=== PATIENT | male | born 1930 | race Caucasian/White ===

== ENCOUNTER 2020-01-15 04:40 | Day surgery (SDC) | payer OTHER ==
[2020-01-12 17:29] VITALS: BMI 23.6
[~2020-01-15 04:40] MED LIST: BUPIVACAINE HCL 0.5% 250 MG/50 ML VIAL IJ ONE; IOHEXOL 180 MG/1 ML ML IJ ONE; LIDOCAINE HCL 1% PRESERVATIVE FREE - 30ML VIAL IJ ONE; TRIAMCINOLONE ACET 40MG/1ML VIAL IM ONE
[2020-01-15] MEDS ORDERED: TRIAMCINOLONE ACET 40MG/1ML VIAL ONE (07:20)
[2020-01-15] MEDS ORDERED: BUPIVACAINE HCL/PF 0.25% (2.5MG/ML) 10 ML VIAL ONE (07:20)
[2020-01-15] MEDS ORDERED: DEXAMETHASONE SOD PHOSPHATE/PF 10 MG/ML SDV ONE (07:20)
[2020-01-15] MEDS ORDERED: LIDOCAINE HCL/PF 1% SDV 5ML VIAL ONE (07:20)
[2020-01-15] MEDS ORDERED: BUPIVACAINE HCL/PF 0.75% 10 ML VIAL ONE (07:21)
[2020-01-15] MEDS ORDERED: IOHEXOL 180 MG/1 ML ML IJ ONE (09:43)
[2020-01-15] MEDS ORDERED: LIDOCAINE HCL 1% PRESERVATIVE FREE - 30ML VIAL IJ ONE (09:43)
[2020-01-15] MEDS ORDERED: BUPIVACAINE HCL 0.5% 250 MG/50 ML VIAL IJ ONE (09:43)
[2020-01-15] MEDS ORDERED: TRIAMCINOLONE ACET 40MG/1ML VIAL IM ONE (09:43)
[2020-01-15 10:08] VITALS: PULSE 100; TEMP 97
[2020-01-15 11:12] VITALS: BP 120/72
== END 2020-01-15 10:45 | disposition home or self-care (01) ==
LOC: JASU-SURG 04:40
PROVIDERS: ATTEND Pain Medicine Pain Medicine
PROC: 3E0U33Z Introduction of Anti-inflammatory into Joints, Percutaneous Approach (ICD-10-PCS; 2020-01-15)
PROC: BR1 Imaging, Axial Skeleton, Except Skull and Facial Bones, Fluoroscopy (ICD-10-PCS; 2020-01-15)
PROC: 3E0U3BZ Introduction of Anesthetic Agent into Joints, Percutaneous Approach (ICD-10-PCS; principal; 2020-01-15 09:00)
DX: M16.11 Unilateral primary osteoarthritis, right hip (principal); M25.551 Pain in right hip
CPT/HCPCS: 76000-TC-FY

== ENCOUNTER 2020-10-29 17:29 | Inpatient (IN) | payer OTHER ==
[2020-10-29 18:12] VITALS: BMI 20.5
[2020-10-29 19:30] LABS: BASO % 0.2 % (0-2.0); EOS % 0.5 % (0-4.5); HEMATOCRIT 19.5 % (35.4-49); LYMPH % 3.5 % (8-40); MCH 29.4 pg (25.7-33.7); MCHC 33.6 g/dl (32.0-35.9); MEAN CELL VOLUME 87.4 fl (80-96); MEAN PLT VOLUME 8.3 fl (7.5-11.1); MONO % 7.7 % (3.8-10.2); NEUT % 88.1 % (42.8-82.8); PLATELET COUNT 234 10^3/uL (134-434); RBC 2.23 M/mm3 (4.00-5.60); RDW 16.1 % (11.9-15.9); WHITE BLOOD COUNT 8.2 K/mm3 (4.0-10.0)
[2020-10-29 19:36] LABS: HEMOGLOBIN 6.6 GM/dL (11.7-16.9)
[2020-10-29 19:48] LABS: CHLORIDE 100 mmol/L (98-107); SODIUM 139 mmol/L (136-145)
[2020-10-29 19:51] LABS: CALCIUM 7.6 mg/dL (8.5-10.1)
[2020-10-29 19:52] LABS: ALBUMIN 1.7 g/dl (3.4-5.0); ANION GAP 7 MMOL/L (8-16); BLOOD UREA NITROGEN 20.3 mg/dL (7-18); CO2 31 mmol/L (21-32); GLUCOSE,RANDOM 102 mg/dL (74-106)
[2020-10-29 19:55] LABS: CREATININE 1.1 mg/dL (0.55-1.3); SGOT/AST 19 U/L (15-37); SGPT/ALT < 6 U/L (13-61)
[2020-10-29 19:57] LABS: BILIRUBIN,TOTAL 0.4 mg/dL (0.2-1); TOT PROT 5.1 g/dl (6.4-8.2)
[2020-10-29 19:58] LABS: ALK PHOS 120 U/L (45-117)
[2020-10-29 20:29] LABS: N-TERMINAL BNP 3512.5 pg/ml (5-450)
[2020-10-29] MEDS ORDERED: PIPERACILLIN/TAZOB 3.375 GM 3.375 GM in DEXTROSE 5%-WATER - 50 ML IVPB ONE (21:16)
[2020-10-29 21:57] LABS: INR 1.96 (0.83-1.09); PROTHROMBIN TIME (PATIENT) 23.3 SEC (9.7-13.0)
[2020-10-29] MEDS ORDERED: PIPERACILLIN/TAZOB 3.375 GM 3.375 GM/50 ML BAG IVPB ONE (21:57)
[2020-10-29 21:59] LABS: ACTIVATED PTT 33.5 SECONDS (25.2-36.5)
[2020-10-29] MEDS ORDERED: FUROSEMIDE 40 MG/4 ML INJECTABLE VIAL IVPUSH ONE (22:02)
[2020-10-29] MEDS ORDERED: oxyCODONE HCL 5 MG TABLET PO PRN (23:36)
[2020-10-30] MEDS ORDERED: FUROSEMIDE 40 MG/4 ML INJECTABLE VIAL ONE (01:02)
[2020-10-30] MEDS ORDERED: ACETAMINOPHEN 325 MG TABLET (FP) ONE (01:02)
[2020-10-30] MEDS: ACETAMINOPHEN 325 MG TABLET (FP) PO PRN ×3 (02:07→22:11)
[2020-10-30] MEDS ORDERED: PIPERACILLIN/TAZOBACTAM 2.25 GM VIAL IVPB ONE ×3 (04:28→13:30)
[2020-10-30] MEDS ORDERED: DEXTROSE 5%-WATER - 50 ML IVPB ONE ×3 (04:28→13:30)
[2020-10-30] MEDS: PIPERACILLIN/TAZOB 2.25 GM 2.25 GM in DEXTROSE 5%-WATER - 50 ML IVPB SCH ×3 (04:31→13:40)
[2020-10-30] MEDS: GABAPENTIN 100 MG CAPSULE PO SCH ×3 (05:30→21:02)
[2020-10-30] MEDS: ALBUTEROL SO4 2.5/IPRATROPIUM 0.5 INH SOL 3 ML VIAL.NEB. NEB SCH ×2 (08:20→14:30)
[2020-10-30] MEDS ORDERED: POLYETHYLENE GLYCOL (HEALTHYLAX) 3350 17 GM PACKET PO SCH (10:00)
[2020-10-30] MEDS ORDERED: FERROUS SO4 325 MG TABLET (FP) PO SCH (10:00)
[2020-10-30] MEDS ORDERED: PANTOPRAZOLE 20 MG TABLET PO SCH (10:00)
[2020-10-30] MEDS: oxyCODONE HCL 5 MG TABLET PO PRN ×2 (10:13→23:03)
[2020-10-30] MEDS: MONTELUKAST NA 10 MG TABLET PO SCH (10:14)
[2020-10-30] MEDS: TORSEMIDE 20 MG TABLET (FP) PO SCH ×3 (10:14→15:54)
[2020-10-30] MEDS: ASCORBIC ACID 500 MG TABLET (FP) PO SCH (10:19)
[2020-10-30] MEDS: CHOLECALCIFEROL (VIT D3) 1,000 UNIT (25 MCG) TABLET PO SCH (10:19)
[2020-10-30] MEDS: MULTIVITAMINS THER W-MINERALS COMBO TABLET (FP) PO SCH (10:19)
[2020-10-30] MEDS ORDERED: SODIUM CHLORIDE 1,000 ML IV SCH (11:45)
[2020-10-30 13:53] LABS: BASO % 0.3 % (0-2.0); EOS % 1.3 % (0-4.5); HEMATOCRIT 24.7 % (35.4-49); HEMOGLOBIN 8.5 GM/dL (11.7-16.9); LYMPH % 5.1 % (8-40); MCH 29.5 pg (25.7-33.7); MCHC 34.3 g/dl (32.0-35.9); MEAN CELL VOLUME 86.1 fl (80-96); MEAN PLT VOLUME 8.5 fl (7.5-11.1); MONO % 7.9 % (3.8-10.2); NEUT % 85.4 % (42.8-82.8); PLATELET COUNT 211 10^3/uL (134-434); RBC 2.88 M/mm3 (4.00-5.60); RDW 15.4 % (11.9-15.9); RETICULOCYTES 2.71 % (0.5-1.5); WHITE BLOOD COUNT 5.8 K/mm3 (4.0-10.0)
[2020-10-30 13:59] LABS: INR 1.88 (0.83-1.09); PROTHROMBIN TIME (PATIENT) 22.7 SEC (9.7-13.0)
[2020-10-30 14:24] LABS: IRON SERUM 92 ug/dL (50-175); TOTAL IRON BINDING CAPACITY 113 ug/dL (250-450)
[2020-10-30 15:23] LABS: CHLORIDE 102 mmol/L (98-107); SODIUM 140 mmol/L (136-145)
[2020-10-30 15:29] LABS: SGOT/AST 19 U/L (15-37)
[2020-10-30 15:30] LABS: ALBUMIN 1.6 g/dl (3.4-5.0); BLOOD UREA NITROGEN 19.9 mg/dL (7-18); CALCIUM 7.7 mg/dL (8.5-10.1)
[2020-10-30 15:31] LABS: ANION GAP 8 MMOL/L (8-16); CO2 29 mmol/L (21-32); GLUCOSE,RANDOM 92 mg/dL (74-106)
[2020-10-30 15:34] LABS: SGPT/ALT < 6 U/L (13-61)
[2020-10-30 15:36] LABS: BILIRUBIN,TOTAL 0.9 mg/dL (0.2-1); TOT PROT 4.8 g/dl (6.4-8.2)
[2020-10-30 15:37] LABS: ALK PHOS 113 U/L (45-117)
[2020-10-30] MEDS: ACETAMINOPHEN 1000 MG/100 ML VIAL (NON FORMULARY) IVPB PRN (16:37)
[2020-10-30] MEDS: CEFAZOLIN 2 GM in DEXTROSE 5%-WATER - 100 ML IVPB SCH (17:08)
[2020-10-30] MEDS: guaiFENesin 200 MG/10 ML 10 ML UNIT-DOSE CUPS PO PRN (17:46)
[2020-10-30] MEDS: SENNOSIDES 8.6MG TABLET (FP) PO SCH (21:02)
[2020-10-30] MEDS: PANTOPRAZOLE 40 MG TABLET PO SCH (21:02)
[2020-10-30] MEDS: POLYETHYLENE GLYCOL (HEALTHYLAX) 3350 17 GM PACKET PO SCH (21:02)
[2020-10-30] MEDS: ATORVASTATIN CA 20 MG TABLET (FP) PO SCH (21:02)
[2020-10-31] MEDS: CEFAZOLIN 2 GM in DEXTROSE 5%-WATER - 100 ML IVPB SCH ×3 (02:20→17:20)
[2020-10-31] MEDS ORDERED: BISACODYL 5 MG TABLET.DR (FP) PO ONE (04:00)
[2020-10-31] MEDS: POLYETHYLENE GLYCOL (HEALTHYLAX) 3350 17 GM PACKET PO SCH ×3 (05:39→21:50)
[2020-10-31] MEDS: oxyCODONE HCL 5 MG TABLET PO PRN (05:39)
[2020-10-31] MEDS: GABAPENTIN 100 MG CAPSULE PO SCH ×3 (05:39→23:32)
[2020-10-31] MEDS: ALBUTEROL SO4 2.5/IPRATROPIUM 0.5 INH SOL 3 ML VIAL.NEB. NEB SCH ×3 (07:30→15:31)
[2020-10-31 07:32] LABS: BASO % 0.5 % (0-2.0); EOS % 2.5 % (0-4.5); HEMATOCRIT 21.5 % (35.4-49); HEMOGLOBIN 7.2 GM/dL (11.7-16.9); LYMPH % 5.8 % (8-40); MCHC 33.7 g/dl (32.0-35.9); MEAN CELL VOLUME 86.1 fl (80-96); MEAN PLT VOLUME 8.4 fl (7.5-11.1); MONO % 8.2 % (3.8-10.2); PLATELET COUNT 177 10^3/uL (134-434); RDW 15.6 % (11.9-15.9); WHITE BLOOD COUNT 5.1 K/mm3 (4.0-10.0)
[2020-10-31 07:40] LABS: INR 1.38 (0.83-1.09); PROTHROMBIN TIME (PATIENT) 16.8 SEC (9.7-13.0)
[2020-10-31 07:43] LABS: ACTIVATED PTT 30.6 SECONDS (25.2-36.5)
[2020-10-31 07:53] LABS: CALCIUM 7.2 mg/dL (8.5-10.1)
[2020-10-31 07:54] LABS: BLOOD UREA NITROGEN 19.2 mg/dL (7-18)
[2020-10-31] MEDS ORDERED: IRON SUCROSE INJECTION 200 MG in SODIUM CHLORIDE 90 ML IVPB ONE (09:00)
[2020-10-31] MEDS ORDERED: POTASSIUM CHLORIDE TABS 20 MEQ TABLET.ER (FP) PO ONE (09:23)
[2020-10-31] MEDS: ACETAMINOPHEN 1000 MG/100 ML VIAL (NON FORMULARY) IVPB PRN (09:38)
[2020-10-31] MEDS: MULTIVITAMINS THER W-MINERALS COMBO TABLET (FP) PO SCH (09:42)
[2020-10-31] MEDS: ASCORBIC ACID 500 MG TABLET (FP) PO SCH (09:42)
[2020-10-31] MEDS: PEG 3350/NA SULF BICARB CL/KCL 4000 ML SOLN.RECON PO ONE ×2 (09:42→10:12)
[2020-10-31] MEDS: TORSEMIDE 20 MG TABLET (FP) PO SCH (09:42)
[2020-10-31] MEDS: CHOLECALCIFEROL (VIT D3) 1,000 UNIT (25 MCG) TABLET PO SCH (09:42)
[2020-10-31] MEDS: PANTOPRAZOLE 40 MG TABLET PO SCH ×2 (09:42→21:50)
[2020-10-31] MEDS: MONTELUKAST NA 10 MG TABLET PO SCH (09:42)
[2020-10-31] MEDS ORDERED: ENOXAPARIN NA (PORCINE) 40 MG/0.4 ML DISP.SYRIN SQ SCH (10:00)
[2020-10-31] MEDS ORDERED: PEG 3350/NA SULF BICARB CL/KCL 4000 ML SOLN.RECON PO ONE (10:30)
[2020-10-31] MEDS ORDERED: PT OWN MED DRAWER 7, Y5N ONE (10:49)
[2020-10-31] MEDS: Methylnaltrexone Bromide 12 MG/0.6 ML KIT SQ SCH (10:52)
[2020-10-31] MEDS ORDERED: TORSEMIDE 20 MG TABLET (FP) PO ONE (15:03)
[2020-10-31] MEDS: ACETAMINOPHEN 325 MG TABLET (FP) PO PRN ×2 (17:20→23:39)
[2020-10-31] MEDS: ATORVASTATIN CA 20 MG TABLET (FP) PO SCH (21:51)
[2020-10-31] MEDS: SENNOSIDES 8.6MG TABLET (FP) PO SCH (21:51)
[2020-11-01] MEDS ORDERED: PT OWN MED DRAWER 7, Y5N ONE (01:00)
[2020-11-01] MEDS: CEFAZOLIN 2 GM in DEXTROSE 5%-WATER - 100 ML IVPB SCH ×3 (01:19→17:58)
[2020-11-01] MEDS: oxyCODONE HCL 5 MG TABLET PO PRN ×3 (04:35→22:25)
[2020-11-01] MEDS: GABAPENTIN 100 MG CAPSULE PO SCH ×3 (05:21→21:30)
[2020-11-01] MEDS: POLYETHYLENE GLYCOL (HEALTHYLAX) 3350 17 GM PACKET PO SCH ×2 (05:22→14:05)
[2020-11-01] MEDS: ACETAMINOPHEN 325 MG TABLET (FP) PO PRN ×2 (06:15→19:56)
[2020-11-01 06:28] LABS: BASO % 0.2 % (0-2.0); EOS % 1.3 % (0-4.5); HEMATOCRIT 24.3 % (35.4-49); HEMOGLOBIN 8.5 GM/dL (11.7-16.9); LYMPH % 6.2 % (8-40); MCH 29.9 pg (25.7-33.7); MCHC 35.1 g/dl (32.0-35.9); MEAN CELL VOLUME 85.1 fl (80-96); MEAN PLT VOLUME 8.4 fl (7.5-11.1); MONO % 8.8 % (3.8-10.2); NEUT % 83.5 % (42.8-82.8); PLATELET COUNT 180 10^3/uL (134-434); RBC 2.86 M/mm3 (4.00-5.60); RDW 15.7 % (11.9-15.9); WHITE BLOOD COUNT 5.5 K/mm3 (4.0-10.0)
[2020-11-01 06:38] LABS: INR 1.34 (0.83-1.09); PROTHROMBIN TIME (PATIENT) 16.1 SEC (9.7-13.0)
[2020-11-01 06:44] LABS: CHLORIDE 103 mmol/L (98-107); SODIUM 141 mmol/L (136-145)
[2020-11-01 06:48] LABS: ALBUMIN 1.6 g/dl (3.4-5.0); ANION GAP 7 MMOL/L (8-16); BLOOD UREA NITROGEN 17.6 mg/dL (7-18); CO2 31 mmol/L (21-32); GLUCOSE,RANDOM 85 mg/dL (74-106)
[2020-11-01 06:51] LABS: CREATININE 0.8 mg/dL (0.55-1.3); SGOT/AST 24 U/L (15-37); SGPT/ALT < 6 U/L (13-61)
[2020-11-01 06:52] LABS: BILIRUBIN,TOTAL 0.6 mg/dL (0.2-1)
[2020-11-01 06:54] LABS: ALK PHOS 126 U/L (45-117)
[2020-11-01 06:56] LABS: TOT PROT 4.8 g/dl (6.4-8.2)
[2020-11-01 06:58] LABS: CALCIUM 6.7 mg/dL (8.5-10.1)
[2020-11-01] MEDS: ALBUTEROL SO4 2.5/IPRATROPIUM 0.5 INH SOL 3 ML VIAL.NEB. NEB SCH ×3 (07:28→15:30)
[2020-11-01] MEDS: MULTIVITAMINS THER W-MINERALS COMBO TABLET (FP) PO SCH (09:06)
[2020-11-01] MEDS: ASCORBIC ACID 500 MG TABLET (FP) PO SCH (09:06)
[2020-11-01] MEDS: TORSEMIDE 20 MG TABLET (FP) PO SCH (09:06)
[2020-11-01] MEDS: CHOLECALCIFEROL (VIT D3) 1,000 UNIT (25 MCG) TABLET PO SCH (09:06)
[2020-11-01] MEDS: PANTOPRAZOLE 40 MG TABLET PO SCH ×2 (09:06→21:12)
[2020-11-01] MEDS: MONTELUKAST NA 10 MG TABLET PO SCH (09:06)
[2020-11-01] MEDS: Methylnaltrexone Bromide 12 MG/0.6 ML KIT SQ SCH (09:06)
[2020-11-01] MEDS: AMINO ACIDS/PROTEIN HYDROLYS 30 ML LIQUID.PKT PO SCH (17:18)
[2020-11-01] MEDS: SENNOSIDES 8.6MG TABLET (FP) PO SCH (21:11)
[2020-11-01] MEDS: ATORVASTATIN CA 20 MG TABLET (FP) PO SCH (21:12)
[2020-11-01] MEDS: guaiFENesin 200 MG/10 ML 10 ML UNIT-DOSE CUPS PO PRN (21:26)
[2020-11-02] MEDS: CEFAZOLIN 2 GM in DEXTROSE 5%-WATER - 100 ML IVPB SCH ×3 (01:35→17:22)
[2020-11-02] MEDS: ACETAMINOPHEN 325 MG TABLET (FP) PO PRN ×3 (05:07→21:21)
[2020-11-02] MEDS: GABAPENTIN 100 MG CAPSULE PO SCH ×3 (05:14→21:22)
[2020-11-02] MEDS: oxyCODONE HCL 5 MG TABLET PO PRN ×2 (07:20→17:21)
[2020-11-02] MEDS: ALBUTEROL SO4 2.5/IPRATROPIUM 0.5 INH SOL 3 ML VIAL.NEB. NEB SCH ×3 (07:46→20:55)
[2020-11-02] MEDS ORDERED: PT OWN MED DRAWER 7, Y5N ONE (08:56)
[2020-11-02] MEDS: TORSEMIDE 20 MG TABLET (FP) PO SCH (09:58)
[2020-11-02] MEDS: CHOLECALCIFEROL (VIT D3) 1,000 UNIT (25 MCG) TABLET PO SCH (09:58)
[2020-11-02] MEDS: MONTELUKAST NA 10 MG TABLET PO SCH (09:58)
[2020-11-02] MEDS: AMINO ACIDS/PROTEIN HYDROLYS 30 ML LIQUID.PKT PO SCH ×2 (09:58→17:33)
[2020-11-02] MEDS: MULTIVITAMINS THER W-MINERALS COMBO TABLET (FP) PO SCH (09:58)
[2020-11-02 09:59] LABS: BASO % 0.3 % (0-2.0); EOS % 1.4 % (0-4.5); HEMATOCRIT 28.1 % (35.4-49); HEMOGLOBIN 9.7 GM/dL (11.7-16.9); MCH 29.7 pg (25.7-33.7); MCHC 34.4 g/dl (32.0-35.9); MEAN CELL VOLUME 86.5 fl (80-96); MEAN PLT VOLUME 8.5 fl (7.5-11.1); NEUT % 83.3 % (42.8-82.8); PLATELET COUNT 194 10^3/uL (134-434); RBC 3.25 M/mm3 (4.00-5.60); RDW 15.9 % (11.9-15.9); WHITE BLOOD COUNT 6.7 K/mm3 (4.0-10.0)
[2020-11-02] MEDS: POLYETHYLENE GLYCOL (HEALTHYLAX) 3350 17 GM PACKET PO SCH (09:59)
[2020-11-02] MEDS: ASCORBIC ACID 500 MG TABLET (FP) PO SCH (09:59)
[2020-11-02] MEDS: PANTOPRAZOLE 40 MG TABLET PO SCH ×2 (09:59→21:22)
[2020-11-02 10:08] LABS: INR 1.29 (0.83-1.09); PROTHROMBIN TIME (PATIENT) 15.5 SEC (9.7-13.0)
[2020-11-02 10:24] LABS: CHLORIDE 102 mmol/L (98-107); SODIUM 141 mmol/L (136-145)
[2020-11-02 10:26] LABS: CALCIUM 7.4 mg/dL (8.5-10.1)
[2020-11-02 10:27] LABS: BLOOD UREA NITROGEN 17.7 mg/dL (7-18)
[2020-11-02 10:28] LABS: CO2 34 mmol/L (21-32); GLUCOSE,RANDOM 118 mg/dL (74-106)
[2020-11-02 10:30] LABS: CREATININE 0.8 mg/dL (0.55-1.3)
[2020-11-02 10:49] LABS: ANION GAP 5 MMOL/L (8-16)
[2020-11-02] MEDS: POTASSIUM CHLORIDE ORAL LIQUID 20 MEQ/15 ML PO SCH (11:57)
[2020-11-02] MEDS: SILVER SULFADIAZINE 1% TOP CREAM 50 GM JAR TP SCH (17:33)
[2020-11-02] MEDS: ATORVASTATIN CA 20 MG TABLET (FP) PO SCH (21:22)
[2020-11-02] MEDS: SENNOSIDES 8.6MG TABLET (FP) PO SCH (21:22)
[2020-11-03] MEDS: oxyCODONE HCL 5 MG TABLET PO PRN ×3 (00:06→21:21)
[2020-11-03] MEDS: CEFAZOLIN 2 GM in DEXTROSE 5%-WATER - 100 ML IVPB SCH ×3 (01:01→17:53)
[2020-11-03] MEDS: ACETAMINOPHEN 325 MG TABLET (FP) PO PRN ×2 (04:57→12:03)
[2020-11-03] MEDS: GABAPENTIN 100 MG CAPSULE PO SCH ×3 (05:55→21:20)
[2020-11-03] MEDS: ALBUTEROL SO4 2.5/IPRATROPIUM 0.5 INH SOL 3 ML VIAL.NEB. NEB SCH ×3 (07:35→20:34)
[2020-11-03 08:16] LABS: CALCIUM 7.1 mg/dL (8.5-10.1)
[2020-11-03 08:17] LABS: BLOOD UREA NITROGEN 19.7 mg/dL (7-18)
[2020-11-03 08:20] LABS: CREATININE 0.7 mg/dL (0.55-1.3)
[2020-11-03] MEDS: POTASSIUM CHLORIDE ORAL LIQUID 20 MEQ/15 ML PO SCH (09:43)
[2020-11-03] MEDS: AMINO ACIDS/PROTEIN HYDROLYS 30 ML LIQUID.PKT PO SCH ×2 (09:43→17:30)
[2020-11-03] MEDS: POLYETHYLENE GLYCOL (HEALTHYLAX) 3350 17 GM PACKET PO SCH (09:43)
[2020-11-03] MEDS: SILVER SULFADIAZINE 1% TOP CREAM 50 GM JAR TP SCH (09:44)
[2020-11-03] MEDS: ASCORBIC ACID 500 MG TABLET (FP) PO SCH (09:44)
[2020-11-03] MEDS: TORSEMIDE 20 MG TABLET (FP) PO SCH (09:44)
[2020-11-03] MEDS: CHOLECALCIFEROL (VIT D3) 1,000 UNIT (25 MCG) TABLET PO SCH (09:44)
[2020-11-03] MEDS: MONTELUKAST NA 10 MG TABLET PO SCH (09:44)
[2020-11-03] MEDS: MULTIVITAMINS THER W-MINERALS COMBO TABLET (FP) PO SCH (09:44)
[2020-11-03] MEDS: PANTOPRAZOLE 40 MG TABLET PO SCH ×2 (09:44→21:20)
[2020-11-03] MEDS: SENNOSIDES 8.6MG TABLET (FP) PO SCH (21:20)
[2020-11-03] MEDS: ATORVASTATIN CA 20 MG TABLET (FP) PO SCH (21:20)
[2020-11-04] MEDS: ACETAMINOPHEN 325 MG TABLET (FP) PO PRN ×4 (00:56→22:29)
[2020-11-04] MEDS: CEFAZOLIN 2 GM in DEXTROSE 5%-WATER - 100 ML IVPB SCH ×3 (02:42→17:12)
[2020-11-04] MEDS: guaiFENesin 200 MG/10 ML 10 ML UNIT-DOSE CUPS PO PRN ×2 (03:19→15:20)
[2020-11-04] MEDS: oxyCODONE HCL 5 MG TABLET PO PRN (05:24)
[2020-11-04] MEDS: GABAPENTIN 100 MG CAPSULE PO SCH ×3 (05:25→22:29)
[2020-11-04] MEDS: ALBUTEROL SO4 2.5/IPRATROPIUM 0.5 INH SOL 3 ML VIAL.NEB. NEB SCH ×3 (07:45→20:00)
[2020-11-04] MEDS: POTASSIUM CHLORIDE ORAL LIQUID 20 MEQ/15 ML PO SCH (09:24)
[2020-11-04] MEDS: PANTOPRAZOLE 40 MG TABLET PO SCH ×2 (09:25→22:28)
[2020-11-04] MEDS: POLYETHYLENE GLYCOL (HEALTHYLAX) 3350 17 GM PACKET PO SCH (09:25)
[2020-11-04] MEDS: ASCORBIC ACID 500 MG TABLET (FP) PO SCH (09:25)
[2020-11-04] MEDS: SILVER SULFADIAZINE 1% TOP CREAM 50 GM JAR TP SCH (09:25)
[2020-11-04] MEDS: CHOLECALCIFEROL (VIT D3) 1,000 UNIT (25 MCG) TABLET PO SCH (09:25)
[2020-11-04] MEDS: TORSEMIDE 20 MG TABLET (FP) PO SCH (09:25)
[2020-11-04] MEDS: MULTIVITAMINS THER W-MINERALS COMBO TABLET (FP) PO SCH (09:25)
[2020-11-04] MEDS: MONTELUKAST NA 10 MG TABLET PO SCH (09:25)
[2020-11-04] MEDS: AMINO ACIDS/PROTEIN HYDROLYS 30 ML LIQUID.PKT PO SCH ×2 (09:25→17:12)
[2020-11-04] MEDS: ATORVASTATIN CA 20 MG TABLET (FP) PO SCH (22:28)
[2020-11-04] MEDS: SENNOSIDES 8.6MG TABLET (FP) PO SCH (22:28)
[2020-11-05] MEDS: CEFAZOLIN 2 GM in DEXTROSE 5%-WATER - 100 ML IVPB SCH ×3 (01:21→18:37)
[2020-11-05] MEDS: ACETAMINOPHEN 325 MG TABLET (FP) PO PRN ×3 (04:55→20:58)
[2020-11-05] MEDS: GABAPENTIN 100 MG CAPSULE PO SCH ×3 (05:00→21:01)
[2020-11-05] MEDS: ALBUTEROL SO4 2.5/IPRATROPIUM 0.5 INH SOL 3 ML VIAL.NEB. NEB SCH ×3 (07:36→19:15)
[2020-11-05] MEDS: POLYETHYLENE GLYCOL (HEALTHYLAX) 3350 17 GM PACKET PO SCH (09:23)
[2020-11-05] MEDS: MONTELUKAST NA 10 MG TABLET PO SCH (09:24)
[2020-11-05] MEDS: SILVER SULFADIAZINE 1% TOP CREAM 50 GM JAR TP SCH (09:24)
[2020-11-05] MEDS: MULTIVITAMINS THER W-MINERALS COMBO TABLET (FP) PO SCH (09:24)
[2020-11-05] MEDS: ASCORBIC ACID 500 MG TABLET (FP) PO SCH (09:24)
[2020-11-05] MEDS: TORSEMIDE 20 MG TABLET (FP) PO SCH (09:24)
[2020-11-05] MEDS: CHOLECALCIFEROL (VIT D3) 1,000 UNIT (25 MCG) TABLET PO SCH (09:24)
[2020-11-05] MEDS: AMINO ACIDS/PROTEIN HYDROLYS 30 ML LIQUID.PKT PO SCH ×2 (09:24→17:45)
[2020-11-05] MEDS: POTASSIUM CHLORIDE ORAL LIQUID 20 MEQ/15 ML PO SCH (09:24)
[2020-11-05] MEDS: PANTOPRAZOLE 40 MG TABLET PO SCH ×2 (09:24→21:00)
[2020-11-05] MEDS ORDERED: FUROSEMIDE 40 MG/4 ML INJECTABLE VIAL IVPUSH ONE (10:24)
[2020-11-05] MEDS ORDERED: TAMSULOSIN HCL 0.4 MG CAP PO ONE (10:37)
[2020-11-05] MEDS: ALBUTEROL SO4 0.083% IH SOL 2.5 MG/3 ML VIAL.NEB. NEB PRN (10:55)
[2020-11-05 12:32] LABS: HEMATOCRIT 30.1 % (35.4-49); HEMOGLOBIN 10.2 GM/dL (11.7-16.9); MCH 29.6 pg (25.7-33.7); MCHC 33.8 g/dl (32.0-35.9); MEAN CELL VOLUME 87.5 fl (80-96); MEAN PLT VOLUME 8.4 fl (7.5-11.1); PLATELET COUNT 167 10^3/uL (134-434); RBC 3.44 M/mm3 (4.00-5.60); RDW 16.1 % (11.9-15.9); WHITE BLOOD COUNT 6.9 K/mm3 (4.0-10.0)
[2020-11-05 12:48] LABS: BLOOD UREA NITROGEN 20.6 mg/dL (7-18); CALCIUM 7.5 mg/dL (8.5-10.1)
[2020-11-05 12:52] LABS: CREATININE 0.9 mg/dL (0.55-1.3)
[2020-11-05] MEDS: oxyCODONE HCL 5 MG TABLET PO PRN ×2 (14:25→22:30)
[2020-11-05] MEDS: guaiFENesin 200 MG/10 ML 10 ML UNIT-DOSE CUPS PO PRN (20:59)
[2020-11-05] MEDS: ATORVASTATIN CA 20 MG TABLET (FP) PO SCH (21:00)
[2020-11-05] MEDS: SENNOSIDES 8.6MG TABLET (FP) PO SCH (21:00)
[2020-11-06] MEDS: MELATONIN 5 MG TABLETS PO PRN ×2 (01:16→21:30)
[2020-11-06] MEDS: CEFAZOLIN 2 GM in DEXTROSE 5%-WATER - 100 ML IVPB SCH ×5 (01:16→17:06)
[2020-11-06] MEDS: ACETAMINOPHEN 325 MG TABLET (FP) PO PRN ×2 (05:38→13:49)
[2020-11-06] MEDS: GABAPENTIN 100 MG CAPSULE PO SCH ×3 (05:39→21:28)
[2020-11-06] MEDS: ALBUTEROL SO4 2.5/IPRATROPIUM 0.5 INH SOL 3 ML VIAL.NEB. NEB SCH ×3 (08:20→20:41)
[2020-11-06 08:34] LABS: BASO % 0.6 % (0-2.0); EOS % 3.3 % (0-4.5); HEMATOCRIT 28.9 % (35.4-49); HEMOGLOBIN 9.8 GM/dL (11.7-16.9); LYMPH % 9.6 % (8-40); MCH 29.8 pg (25.7-33.7); MCHC 33.8 g/dl (32.0-35.9); MEAN CELL VOLUME 88.3 fl (80-96); MEAN PLT VOLUME 8.9 fl (7.5-11.1); MONO % 8.2 % (3.8-10.2); NEUT % 78.3 % (42.8-82.8); PLATELET COUNT 154 10^3/uL (134-434); RBC 3.28 M/mm3 (4.00-5.60); RDW 16.3 % (11.9-15.9); WHITE BLOOD COUNT 5.4 K/mm3 (4.0-10.0)
[2020-11-06 08:42] LABS: CHLORIDE 100 mmol/L (98-107); SODIUM 141 mmol/L (136-145)
[2020-11-06 08:44] LABS: CALCIUM 7.5 mg/dL (8.5-10.1)
[2020-11-06 08:45] LABS: ALBUMIN 1.8 g/dl (3.4-5.0); ANION GAP 1 MMOL/L (8-16); BLOOD UREA NITROGEN 21.2 mg/dL (7-18); CO2 39 mmol/L (21-32); GLUCOSE,RANDOM 80 mg/dL (74-106)
[2020-11-06 08:48] LABS: CREATININE 0.7 mg/dL (0.55-1.3); SGOT/AST 19 U/L (15-37)
[2020-11-06 08:50] LABS: BILIRUBIN,TOTAL 0.5 mg/dL (0.2-1); TOT PROT 5.1 g/dl (6.4-8.2)
[2020-11-06 08:51] LABS: ALK PHOS 148 U/L (45-117)
[2020-11-06 08:55] LABS: SGPT/ALT < 6 U/L (13-61)
[2020-11-06] MEDS ORDERED: FUROSEMIDE 40 MG/4 ML INJECTABLE VIAL IVPB SCH (10:00)
[2020-11-06] MEDS: MULTIVITAMINS THER W-MINERALS COMBO TABLET (FP) PO SCH (10:30)
[2020-11-06] MEDS: PANTOPRAZOLE 40 MG TABLET PO SCH ×2 (10:30→21:29)
[2020-11-06] MEDS: MONTELUKAST NA 10 MG TABLET PO SCH (10:31)
[2020-11-06] MEDS: TAMSULOSIN HCL 0.4 MG CAP PO SCH (10:31)
[2020-11-06] MEDS: CHOLECALCIFEROL (VIT D3) 1,000 UNIT (25 MCG) TABLET PO SCH (10:31)
[2020-11-06] MEDS: ASCORBIC ACID 500 MG TABLET (FP) PO SCH (10:31)
[2020-11-06] MEDS: AMINO ACIDS/PROTEIN HYDROLYS 30 ML LIQUID.PKT PO SCH ×2 (10:32→16:51)
[2020-11-06] MEDS: POLYETHYLENE GLYCOL (HEALTHYLAX) 3350 17 GM PACKET PO SCH (10:32)
[2020-11-06] MEDS: POTASSIUM CHLORIDE ORAL LIQUID 20 MEQ/15 ML PO SCH (10:32)
[2020-11-06] MEDS: SILVER SULFADIAZINE 1% TOP CREAM 50 GM JAR TP SCH (10:34)
[2020-11-06] MEDS: HEPARIN NA (PORCINE) 5,000 UNITS/ML 1ML VIAL SQ SCH ×2 (13:16→21:27)
[2020-11-06] MEDS: oxyCODONE HCL 5 MG TABLET PO PRN (16:51)
[2020-11-06] MEDS: ATORVASTATIN CA 20 MG TABLET (FP) PO SCH (21:28)
[2020-11-06] MEDS: SENNOSIDES 8.6MG TABLET (FP) PO SCH (21:29)
[2020-11-07] MEDS: ACETAMINOPHEN 325 MG TABLET (FP) PO PRN ×2 (00:47→09:18)
[2020-11-07] MEDS: oxyCODONE HCL 5 MG TABLET PO PRN ×2 (00:47→05:10)
[2020-11-07] MEDS: CEFAZOLIN 2 GM in DEXTROSE 5%-WATER - 100 ML IVPB SCH ×2 (02:18→11:03)
[2020-11-07] MEDS: GABAPENTIN 100 MG CAPSULE PO SCH (05:11)
[2020-11-07] MEDS: ALBUTEROL SO4 2.5/IPRATROPIUM 0.5 INH SOL 3 ML VIAL.NEB. NEB SCH (07:34)
[2020-11-07 09:07] LABS: HEMATOCRIT 29.8 % (35.4-49); MCHC 33.7 g/dl (32.0-35.9); MEAN CELL VOLUME 88.9 fl (80-96); MEAN PLT VOLUME 9.2 fl (7.5-11.1); PLATELET COUNT 170 10^3/uL (134-434); RBC 3.35 M/mm3 (4.00-5.60); RDW 16.7 % (11.9-15.9); WHITE BLOOD COUNT 5.2 K/mm3 (4.0-10.0)
[2020-11-07] MEDS: PANTOPRAZOLE 40 MG TABLET PO SCH (09:17)
[2020-11-07] MEDS: MONTELUKAST NA 10 MG TABLET PO SCH (09:17)
[2020-11-07] MEDS: POLYETHYLENE GLYCOL (HEALTHYLAX) 3350 17 GM PACKET PO SCH (09:17)
[2020-11-07] MEDS: POTASSIUM CHLORIDE ORAL LIQUID 20 MEQ/15 ML PO SCH (09:17)
[2020-11-07] MEDS: ASCORBIC ACID 500 MG TABLET (FP) PO SCH (09:18)
[2020-11-07] MEDS: MULTIVITAMINS THER W-MINERALS COMBO TABLET (FP) PO SCH (09:18)
[2020-11-07] MEDS: TAMSULOSIN HCL 0.4 MG CAP PO SCH (09:18)
[2020-11-07] MEDS: AMINO ACIDS/PROTEIN HYDROLYS 30 ML LIQUID.PKT PO SCH (09:18)
[2020-11-07] MEDS: CHOLECALCIFEROL (VIT D3) 1,000 UNIT (25 MCG) TABLET PO SCH (09:18)
[2020-11-07] MEDS: HEPARIN NA (PORCINE) 5,000 UNITS/ML 1ML VIAL SQ SCH (09:18)
[2020-11-07] MEDS: SILVER SULFADIAZINE 1% TOP CREAM 50 GM JAR TP SCH (09:18)
[2020-11-07 09:26] LABS: CHLORIDE 103 mmol/L (98-107); SODIUM 142 mmol/L (136-145)
[2020-11-07 09:33] LABS: ANION GAP 4 MMOL/L (8-16); BLOOD UREA NITROGEN 23.2 mg/dL (7-18); CALCIUM 8.1 mg/dL (8.5-10.1); CO2 35 mmol/L (21-32); GLUCOSE,RANDOM 82 mg/dL (74-106)
[2020-11-07 09:37] LABS: CREATININE 0.7 mg/dL (0.55-1.3); SGOT/AST 17 U/L (15-37); SGPT/ALT < 6 U/L (13-61)
[2020-11-07 09:38] LABS: BILIRUBIN,TOTAL 0.6 mg/dL (0.2-1); TOT PROT 5.5 g/dl (6.4-8.2)
[2020-11-07 09:39] LABS: ALK PHOS 169 U/L (45-117)
[2020-11-07] MEDS ORDERED: FUROSEMIDE 40 MG/4 ML INJECTABLE VIAL IVPUSH SCH (10:00)
[2020-11-07] MEDS: ALBUTEROL SO4 0.083% IH SOL 2.5 MG/3 ML VIAL.NEB. NEB PRN (11:18)
[2020-11-07 13:27] VITALS: BP 99/47; PULSE 76; TEMP 98.3
[2020-11-07] MEDS ORDERED: HEPARIN NA (PORCINE) 5,000 UNITS/ML 1ML VIAL SQ ONE (22:00)
[2020-11-08] MEDS ORDERED: ENOXAPARIN NA (PORCINE) 40 MG/0.4 ML DISP.SYRIN SQ SCH ×2 (10:00)
== END 2020-11-07 15:43 | DRG 813 ==
LOC: JER 17:29 → JERBED 21:58 → J7W 10-30 02:23
PROVIDERS: ADMIT Internal Medicine; ATTEND Internal Medicine
PROC: 30233N1 Transfusion of Nonautologous Red Blood Cells into Peripheral Vein, Percutaneous Approach (ICD-10-PCS; principal; 2020-10-30)
PROC: 30233L1 Transfusion of Nonautologous Fresh Plasma into Peripheral Vein, Percutaneous Approach (ICD-10-PCS; 2020-10-30)
PROC: 30233K1 Transfusion of Nonautologous Frozen Plasma into Peripheral Vein, Percutaneous Approach (ICD-10-PCS; 2020-10-30)
PROC: 02HV33Z Insertion of Infusion Device into Superior Vena Cava, Percutaneous Approach (ICD-10-PCS; 2020-11-07)
PROC: B518ZZA Fluoroscopy of Superior Vena Cava, Guidance (ICD-10-PCS; 2020-11-07)
DX: D68.32 Hemorrhagic disorder due to extrinsic circulating anticoagulants (principal); L89.153 Pressure ulcer of sacral region, stage 3; K92.2 Gastrointestinal hemorrhage, unspecified; T84.51XA Infection and inflammatory reaction due to internal right hip prosthesis, initial encounter; M96.840 Postprocedural hematoma of a musculoskeletal structure following a musculoskeletal system procedure; R64 Cachexia; D64.9 Anemia, unspecified; I11.0 Hypertensive heart disease with heart failure; T45.515A Adverse effect of anticoagulants, initial encounter; Y83.9 Surgical procedure, unspecified as the cause of abnormal reaction of the patient, or of later complication, without mention of misadventure at the time of the procedure; I50.9 Heart failure, unspecified; Z98.61 Coronary angioplasty status; I25.119 Atherosclerotic heart disease of native coronary artery with unspecified angina pectoris; Z68.20 Body mass index [BMI] 20.0-20.9, adult
CPT/HCPCS: 36415; 36430; 36569; 71045-TC-FY; 73700-TC-RT; 77001-TC-FY; 80048; 80053; 82272; 82550; 82728; 82977; 83540; 83550; 83605; 83880; 84484; 85025; 85027; 85045; 85384; 85610; 85730; 86140; 86850; 86900; 86901; 86922; 87040; 87804; 93005; 93010; 94010; 94640; 97116-GP; 97162-GP; 99291; C1751; C9803; J0131; J1644; J1756; P9017; P9058; U0003; U0005